=== PATIENT | male | born 1965 | race African-American/Black ===

== ENCOUNTER 2017-02-09 13:27 | Emergency (ER) | payer SELFPAY ==
[~2017-02-09] VITALS: Ht 175.3 cm; Wt 113.0 kg
[2017-02-09 13:29] VITALS: BP 122/82
[2017-02-09] MEDS ORDERED: ALPR0.25 PO (13:33)
[2017-02-09] MEDS ORDERED: ARIP2TAB3 PO (13:33)
[2017-02-09] MEDS ORDERED: LORAZEPAM 1MG TABLET PO ONE (17:15)
[2017-02-09] MEDS ORDERED: ARIPIPRAZOLE 15MG TABLET PO ONE (17:15)
[2017-02-09 18:09] LABS: BASOPHILS % 1.1 % (0.0-2.0); EOSINOPHILS % 2.6 % (0.0-5.0); HEMATOCRIT. 49.8 % (42.0-52.0); HEMOGLOBIN. 17.1 g/dL (14.0-18.0); LYMPHOCYTES % 34.4 % (20.0-50.0); MEAN CORPUSCULAR HEMOGLOBIN 27.7 pg (28.0-32.0); MEAN CORPUSCULAR VOLUME 80.5 fL (80.0-94.0); MEAN PLATELET VOLUME 10.2 fl (7.4-10.4); MONOCYTES % 6.4 % (2.0-8.0); NEUTROPHILS % 55.5 % (40.0-76.0); PLATELET 212 x1000/uL (130-400); RED BLOOD CELL COUNT 6.19 mill/uL (4.7-6.1); RED CELL DISTRIBUTION WIDTH 16.6 % (11.6-14.6)
[2017-02-09 18:12] LABS: CHLORIDE 104 mEq/L (98-107)
[2017-02-09 18:19] LABS: CARBON DIOXIDE 28 mEq/L (21-32); ETHANOL BLOOD < 10 mg/dL
== END 2017-02-09 18:45 | disposition left against medical advice (07) ==
LOC: ER 13:41
DX: R45.851 Suicidal ideations (principal); R44.0 Auditory hallucinations; F20.9 Schizophrenia, unspecified; F41.9 Anxiety disorder, unspecified; Z91.14 Patient's other noncompliance with medication regimen; Z76.0 Encounter for issue of repeat prescription; F17.210 Nicotine dependence, cigarettes, uncomplicated
CPT/HCPCS: 36415; 80048; 80307; 80329; 85025; 99284; G0482; Z7610

== ENCOUNTER 2017-08-28 21:35 | Emergency (ER) | payer MEDICARE ==
[~2017-08-28] VITALS: Ht 177.8 cm; Wt 81.0 kg
[~2017-08-28 21:35] MED LIST: ALPR0.25 PO; ARIP2TAB3 PO
[2017-08-28] MEDS ORDERED: CYCLOBENZAPRINE 10MG TABLET PO ONE (22:45)
[2017-08-29 02:00] VITALS: BP 144/91
== END 2017-08-29 02:50 | disposition home or self-care (01) ==
LOC: ER 21:35
DX: M54.5 Low back pain (principal); I10 Essential (primary) hypertension
CPT/HCPCS: 99283

== ENCOUNTER 2018-01-02 14:47 | Emergency (ER) | payer MEDICARE, MEDICAID ==
[~2018-01-02] VITALS: Ht 177.8 cm; Wt 79.0 kg
[~2018-01-02 14:47] MED LIST changes: +LISI-604 PO; +OMEP20TA15 PO
[2018-01-02 15:05] VITALS: BP 126/88
== END 2018-01-02 19:14 | disposition home or self-care (01) ==
LOC: ER 15:21
DX: T65.893A Toxic effect of other specified substances, assault, initial encounter (principal); H10.213 Acute toxic conjunctivitis, bilateral; Y35.29 Legal intervention involving other gas; Y92.511 Restaurant or cafe as the place of occurrence of the external cause; Z88.6 Allergy status to analgesic agent
CPT/HCPCS: 99283

== ENCOUNTER 2018-02-26 15:00 | Inpatient (IN) | payer MEDICARE, MEDICAID ==
[~2018-02-26] VITALS: Ht 180.3 cm; Wt 72.6 kg
[2018-02-26] MEDS ORDERED: ASPIRIN 81MG TABLET PO ONE (17:00)
[2018-02-26 17:37] LABS: BASOPHILS % 0.5 % (0.0-2.0); EOSINOPHILS % 2.2 % (0.0-5.0); HEMATOCRIT. 46.2 % (42.0-52.0); HEMOGLOBIN. 15.2 g/dL (14.0-18.0); LYMPHOCYTES % 19.6 % (20.0-50.0); MEAN CORPUSCULAR HEMOGLOBIN 27.7 pg (28.0-32.0); MEAN CORPUSCULAR VOLUME 84.1 fL (80.0-94.0); MEAN PLATELET VOLUME 9.9 fl (7.4-10.4); MONOCYTES % 6.5 % (2.0-8.0); NEUTROPHILS % 71.2 % (40.0-76.0); PLATELET 87 x1000/uL (130-400); RED CELL DISTRIBUTION WIDTH 16.5 % (11.6-14.6)
[2018-02-26 17:49] LABS: CHLORIDE 108 mEq/L (98-107)
[2018-02-26 17:51] LABS: PLATELET ESTIMATE DECREASED
[2018-02-26 17:52] LABS: ETHANOL BLOOD < 10 mg/dL
[2018-02-26] MEDS ORDERED: IPRATROPIUM/ALBUTEROL 0.5-3(2.5)MG/3ML NEB HHN ONE (18:30)
[2018-02-26] MEDS ORDERED: FUROSEMIDE 20MG/2ML VIAL IVP ONE (18:30)
[2018-02-26 23:43] LABS: CLARITY URINE CLEAR (CLEAR); COLOR URINE YELLOW (YELLOW); KETONES URINE NEGATIVE (NEGATIVE); LEUKOCYTE ESTERASE URINE NEGATIVE (NEGATIVE); NITRITE URINE NEGATIVE (NEGATIVE); OCCULT BLOOD URINE NEGATIVE (NEGATIVE); PROTEIN URINE NEGATIVE (NEGATIVE); SPECIFIC GRAVITY URINE 1.007 (1.005-1.030); UROBILINOGEN URINE 0.2 E.U./dL (0.2-1.0)
[2018-02-26 23:56] LABS: *AMPHETAMINES SCREEN URINE NEGATIVE (NEGATIVE); *BARBITURATES SCREEN URINE NEGATIVE (NEGATIVE); *BENZODIAZEPINES SCREEN URINE NEGATIVE (NEGATIVE); *COCAINE SCREEN URINE PRESUMTIVE POSITIVE (NEGATIVE); CANNABINOID URINE SCREEN NEGATIVE (NEGATIVE); METHADONE URINE SCREEN NEGATIVE (NEGATIVE); OPIATES URINE SCREEN NEGATIVE (NEGATIVE); PHENCYCLIDINE URINE SCREEN NEGATIVE (NEGATIVE)
[2018-02-27] VITALS (9 sets, daily range): BP systolic 117–134; BP diastolic 67–95
[2018-02-27] MEDS: IPRATROPIUM/ALBUTEROL 0.5-3(2.5)MG/3ML NEB HHN SCH ×2 (02:10→20:10)
[2018-02-27] MEDS ORDERED: IPRATROPIUM/ALBUTEROL 0.5-3(2.5)MG/3ML NEB HHN PRN (03:15)
[2018-02-27] MEDS ORDERED: HYDROCODONE/ACETAMINOPHEN 5/325MG TABLET PO PRN (03:15)
[2018-02-27] MEDS ORDERED: ONDANSETRON HCL 4MG/2ML INJ IV PRN (03:15)
[2018-02-27] MEDS ORDERED: PNEUMOCOCCAL 23-VAL P-SAC VAC 0.5 ML IM ONE (09:00)
[2018-02-27] MEDS ORDERED: INFLUENZA VIRUS VACCINE(AFLURIA) 0.5ML SYR IM ONE (09:00)
[2018-02-27] MEDS: FUROSEMIDE 40MG/4ML VIAL IVP SCH (09:18)
[2018-02-27] MEDS: AMLODIPINE 10MG TABLET PO SCH (09:19)
[2018-02-27 10:20] LABS: BASOPHILS % 0.4 % (0.0-2.0); EOSINOPHILS % 4.7 % (0.0-5.0); HEMATOCRIT. 43.6 % (42.0-52.0); HEMOGLOBIN. 14.8 g/dL (14.0-18.0); LYMPHOCYTES % 26.7 % (20.0-50.0); MEAN CORPUSCULAR HEMOGLOBIN 27.7 pg (28.0-32.0); MEAN CORPUSCULAR VOLUME 81.7 fL (80.0-94.0); MEAN PLATELET VOLUME 9.9 fl (7.4-10.4); MONOCYTES % 9.2 % (2.0-8.0); PLATELET 177 x1000/uL (130-400); RED BLOOD CELL COUNT 5.34 mill/uL (4.7-6.1)
[2018-02-27 10:40] LABS: CHLORIDE 108 mEq/L (98-107)
[2018-02-27 10:48] LABS: CREATINE KINASE 497 IU/L (39-308); CREATINE KINASE MB FRACTION 2.8 ng/mL (0.5-3.6); HDL CHOLESTEROL 61 mg/dL (40-59); LDL CHOLESTEROL 83 mg/dL (5-100)
[2018-02-28 03:55] VITALS: BP 107/70
[2018-02-28] MEDS: IPRATROPIUM/ALBUTEROL 0.5-3(2.5)MG/3ML NEB HHN SCH ×3 (07:57→21:03)
[2018-02-28 08:00] VITALS: BP 105/76
[2018-02-28] MEDS: FUROSEMIDE 40MG/4ML VIAL IVP SCH (08:37)
[2018-02-28] MEDS: AMLODIPINE 10MG TABLET PO SCH (08:38)
[2018-02-28 12:00] VITALS: BP 102/67
[2018-02-28 16:00] VITALS: BP 107/47
[2018-02-28 20:00] VITALS: BP 121/75
[2018-03-01] VITALS (7 sets, daily range): BP systolic 100–127; BP diastolic 51–72
[2018-03-01] MEDS: IPRATROPIUM/ALBUTEROL 0.5-3(2.5)MG/3ML NEB HHN SCH ×4 (02:11→20:00)
[2018-03-01] MEDS: FUROSEMIDE 40MG/4ML VIAL IVP SCH (09:00)
[2018-03-01] MEDS: AMLODIPINE 10MG TABLET PO SCH (09:00)
== END 2018-03-01 20:50 | DRG 192 ==
LOC: ER 15:00 → EDBEDREQ 18:32 → 6WST 21:23 → EDBEDREQ 21:39 → EDBEDREQTM 21:39 → ENRESERV 23:01
PROVIDERS: ADMIT Hospitalist; ATTEND Hospitalist
DX: J44.1 Chronic obstructive pulmonary disease with (acute) exacerbation (principal); I50.9 Heart failure, unspecified; I11.0 Hypertensive heart disease with heart failure; F17.210 Nicotine dependence, cigarettes, uncomplicated; R07.9 Chest pain, unspecified; I25.10 Atherosclerotic heart disease of native coronary artery without angina pectoris; Z59.0 Homelessness; Z82.49 Family history of ischemic heart disease and other diseases of the circulatory system; Z88.6 Allergy status to analgesic agent; Z88.8 Allergy status to other drugs, medicaments and biological substances; Z79.899 Other long term (current) drug therapy
CPT/HCPCS: 36415; 71045; 80048; 80061; 80305; 82550; 82553; 83880; 84484; 90686; 90732; 93005; 93306; 93970; 94640; 96374; 99285; G0482; J1940; J7620

== ENCOUNTER 2018-05-15 19:35 | Inpatient (IN) | payer MEDICARE, MEDICAID ==
[~2018-05-15] VITALS: Ht 188 cm; Wt 80.7 kg
[2018-05-15] MEDS ORDERED: SODIUM CHLORIDE 0.9% 1,000 ML IV ONE (20:05)
[2018-05-15] MEDS ORDERED: LORAZEPAM 2MG/ML CPJ IM ONE (20:15)
[2018-05-15] MEDS ORDERED: HALOPERIDOL LACTATE 5MG/ML VIAL IM ONE (20:15)
[2018-05-15] MEDS ORDERED: ACETAMINOPHEN 325MG TABLET PO ONE (20:15)
[2018-05-15 20:38] LABS: CHLORIDE 108 mEq/L (98-107)
[2018-05-15 20:39] LABS: BASOPHILS % 0.4 % (0.0-2.0); EOSINOPHILS % 1.7 % (0.0-5.0); HEMATOCRIT. 46.2 % (42.0-52.0); HEMOGLOBIN. 15.5 g/dL (14.0-18.0); LYMPHOCYTES % 16.9 % (20.0-50.0); MEAN CORPUSCULAR HEMOGLOBIN 27.7 pg (28.0-32.0); MEAN CORPUSCULAR VOLUME 82.8 fL (80.0-94.0); MEAN PLATELET VOLUME 9.6 fl (7.4-10.4); MONOCYTES % 9.1 % (2.0-8.0); NEUTROPHILS % 71.9 % (40.0-76.0); PLATELET 177 x1000/uL (130-400); RED BLOOD CELL COUNT 5.58 mill/uL (4.7-6.1); RED CELL DISTRIBUTION WIDTH 16.3 % (11.6-14.6)
[2018-05-15 20:42] LABS: ETHANOL BLOOD < 10 mg/dL; INR 1.1; PROTHROMBIN TIME 10.7 sec (9.1-11.1)
[2018-05-15] MEDS ORDERED: ASPIRIN 81MG TABLET PO ONE (22:00)
[2018-05-15] MEDS ORDERED: NITROGLYCERIN 0.4MG TABLET SL SL PRN (22:00)
[2018-05-15] MEDS ORDERED: FUROSEMIDE 40MG/4ML VIAL IV ONE (22:00)
[2018-05-15] MEDS ORDERED: ENOXAPARIN 80MG/0.8ML SYR SUBCUT ONE (22:15)
[2018-05-15] MEDS ORDERED: IOHEXOL-350 100 ML BOTTLE ONE (22:40)
[2018-05-16 00:17] LABS: *AMPHETAMINES SCREEN URINE NEGATIVE (NEGATIVE); *BENZODIAZEPINES SCREEN URINE NEGATIVE (NEGATIVE); *COCAINE SCREEN URINE PRESUMTIVE POSITIVE (NEGATIVE)
[2018-05-16 00:18] LABS: *BARBITURATES SCREEN URINE NEGATIVE (NEGATIVE); CANNABINOID URINE SCREEN NEGATIVE (NEGATIVE)
[2018-05-16 00:20] LABS: METHADONE URINE SCREEN NEGATIVE (NEGATIVE)
[2018-05-16 00:21] LABS: OPIATES URINE SCREEN NEGATIVE (NEGATIVE); PHENCYCLIDINE URINE SCREEN NEGATIVE (NEGATIVE)
[2018-05-16] MEDS ORDERED: CLONIDINE 0.1MG TABLET PO PRN (00:45)
[2018-05-16] MEDS ORDERED: DIPHENHYDRAMINE 50MG/ML VIAL IV PRN (00:45)
[2018-05-16] MEDS ORDERED: NA PHOS,M-B/NA PHOS,DI-BA ENEMA 118ML PR PRN (00:45)
[2018-05-16] MEDS ORDERED: IPRATROPIUM/ALBUTEROL 0.5-3(2.5)MG/3ML NEB INH PRN (00:45)
[2018-05-16] MEDS ORDERED: ONDANSETRON HCL 4MG/2ML INJ IV PRN (00:45)
[2018-05-16] MEDS ORDERED: HYDROCODONE/ACETAMINOPHEN 5/325MG TABLET PO PRN (00:45)
[2018-05-16] MEDS ORDERED: MAGNESIUM/ALUMINUM HYDROXIDE/SIMETHICONE 30ML UDC PO PRN (00:45)
[2018-05-16] MEDS ORDERED: ACETAMINOPHEN 325MG TABLET PO PRN (00:45)
[2018-05-16] MEDS ORDERED: DOCUSATE SODIUM 100MG CAPSULE PO PRN (00:45)
[2018-05-16] MEDS ORDERED: ACETAMINOPHEN 650MG/20.3ML UDC GT PRN (00:45)
[2018-05-16] MEDS ORDERED: ACETAMINOPHEN 650MG SUPP PR PRN (00:45)
[2018-05-16] MEDS ORDERED: GUAIFENESIN 200MG/10ML SUGAR FREE UDC PO PRN (00:45)
[2018-05-16 02:00] VITALS: BP 114/73
[2018-05-16] MEDS: SODIUM CHLORIDE 0.9% INJ 3ML FLUSH IVF SCH ×2 (04:26→21:27)
[2018-05-16 06:24] VITALS: BP 116/73
[2018-05-16 07:36] LABS: CLARITY URINE CLEAR (CLEAR); KETONES URINE NEGATIVE (NEGATIVE); LEUKOCYTE ESTERASE URINE NEGATIVE (NEGATIVE); NITRITE URINE NEGATIVE (NEGATIVE); OCCULT BLOOD URINE NEGATIVE (NEGATIVE); PROTEIN URINE NEGATIVE (NEGATIVE); SPECIFIC GRAVITY URINE 1.011 (1.005-1.030); UROBILINOGEN URINE 0.2 E.U./dL (0.2-1.0)
[2018-05-16 07:38] LABS: COLOR URINE PALE YELLOW (YELLOW)
[2018-05-16 08:00] VITALS: BP 109/70
[2018-05-16 09:11] LABS: *AMPHETAMINES SCREEN URINE NEGATIVE (NEGATIVE); *BARBITURATES SCREEN URINE NEGATIVE (NEGATIVE); *BENZODIAZEPINES SCREEN URINE NEGATIVE (NEGATIVE); *COCAINE SCREEN URINE PRESUMTIVE POSITIVE (NEGATIVE); METHADONE URINE SCREEN NEGATIVE (NEGATIVE)
[2018-05-16 09:12] LABS: CANNABINOID URINE SCREEN NEGATIVE (NEGATIVE); OPIATES URINE SCREEN NEGATIVE (NEGATIVE); PHENCYCLIDINE URINE SCREEN NEGATIVE (NEGATIVE)
[2018-05-16] MEDS: FUROSEMIDE 40MG/4ML VIAL IV SCH (09:22)
[2018-05-16 11:22] LABS: CREATINE KINASE MB FRACTION 2.8 ng/mL (0.5-3.6)
[2018-05-16] MEDS: ASPIRIN 81MG EC TABLET PO SCH (11:51)
[2018-05-16 12:00] VITALS: BP 118/98
[2018-05-16 16:00] VITALS: BP 110/77
[2018-05-16 20:00] VITALS: BP 112/70
[2018-05-16] MEDS ORDERED: ATORVASTATIN CALCIUM 10MG TABLET PO SCH (21:00)
[2018-05-16] MEDS: RIVAROXABAN 15 MG TABLET PO SCH (21:27)
[2018-05-17] VITALS: BP 118/74
[2018-05-17 04:00] VITALS: BP 122/76
[2018-05-17] MEDS: SODIUM CHLORIDE 0.9% INJ 3ML FLUSH IVF SCH (05:12)
[2018-05-17 07:21] LABS: BASOPHILS % 0.7 % (0.0-2.0); HEMATOCRIT. 42.3 % (42.0-52.0); HEMOGLOBIN. 14.2 g/dL (14.0-18.0); LYMPHOCYTES % 33.5 % (20.0-50.0); MEAN CORPUSCULAR HEMOGLOBIN 27.6 pg (28.0-32.0); MEAN CORPUSCULAR VOLUME 82.5 fL (80.0-94.0); MEAN PLATELET VOLUME 9.5 fl (7.4-10.4); MONOCYTES % 11.7 % (2.0-8.0); NEUTROPHILS % 50.1 % (40.0-76.0); PLATELET 207 x1000/uL (130-400); RED BLOOD CELL COUNT 5.13 mill/uL (4.7-6.1); RED CELL DISTRIBUTION WIDTH 16.3 % (11.6-14.6)
[2018-05-17 08:10] VITALS: BP 113/73
[2018-05-17 08:11] LABS: CHLORIDE 110 mEq/L (98-107)
[2018-05-17 08:24] LABS: LDL CHOLESTEROL 93 mg/dL (5-100)
[2018-05-17 08:25] LABS: HDL CHOLESTEROL 43 mg/dL (40-59)
[2018-05-17] MEDS: RIVAROXABAN 15 MG TABLET PO SCH (08:47)
[2018-05-17] MEDS: ASPIRIN 81MG EC TABLET PO SCH (08:47)
[2018-05-17] MEDS: FUROSEMIDE 40MG/4ML VIAL IV SCH (08:47)
[2018-05-17] MEDS ORDERED: ASPI-1158 PO (11:28)
[2018-05-17] MEDS ORDERED: RIVA20TA PO (11:28)
[2018-05-17] MEDS ORDERED: XAR15 PO (11:28)
[2018-05-17] MEDS ORDERED: ATOR10TA PO (11:28)
[2018-05-17 12:00] VITALS: BP 114/79
[2018-05-17 12:41] VITALS: BP 114/79
[2018-05-17 16:00] VITALS: BP 117/69
[2018-06-07] MEDS ORDERED: RIVAROXABAN 20 MG TABLET PO SCH (09:00)
== END 2018-05-17 16:23 | disposition home or self-care (01) | DRG 301 ==
LOC: ER 19:35 → 7WST 05-16 00:38 → EDBEDREQ 05-16 00:45 → EDBEDREQDT 05-16 00:45 → EDBEDREQTM 05-16 00:45 → ENRESERV 05-16 01:17 → CANRESERV 05-16 01:17 → ENRESERV 05-16 01:28
PROVIDERS: ADMIT Family Medicine; ATTEND Family Medicine
DX: I82.412 Acute embolism and thrombosis of left femoral vein (principal); I11.0 Hypertensive heart disease with heart failure; R07.9 Chest pain, unspecified; I25.10 Atherosclerotic heart disease of native coronary artery without angina pectoris; F99 Mental disorder, not otherwise specified; I50.9 Heart failure, unspecified; J44.9 Chronic obstructive pulmonary disease, unspecified; F17.200 Nicotine dependence, unspecified, uncomplicated; Z88.9 Allergy status to unspecified drugs, medicaments and biological substances; Y92.9 Unspecified place or not applicable; F14.129 Cocaine abuse with intoxication, unspecified
CPT/HCPCS: 36415; 71045; 71275; 73130; 73590; 73610; 80061; 80305; 82550; 82553; 83880; 84484; 93005; 93970; 96361; 96372; 96374; 97162; 99291; G0482; J1630; J1650; J1940; J2060; J7030; Q9967

== ENCOUNTER 2018-06-12 14:36 | Emergency (ER) | payer MEDICARE, MEDICAID ==
[~2018-06-12] VITALS: Ht 175.3 cm; Wt 83.0 kg
[~2018-06-12 14:36] MED LIST changes: +ASPI-1158 PO; +ATOR10TA PO; +RIVA20TA PO; +XAR15 PO
[2018-06-12 14:41] VITALS: BP 143/85
[2018-06-12] MEDS ORDERED: ACETAMINOPHEN WITH CODEINE 300/30MG TABLET PO ONE (21:30)
== END 2018-06-12 23:25 | disposition home or self-care (01) ==
LOC: ER 14:46
DX: M25.552 Pain in left hip (principal); J44.9 Chronic obstructive pulmonary disease, unspecified; I11.9 Hypertensive heart disease without heart failure; I51.9 Heart disease, unspecified; Z88.6 Allergy status to analgesic agent; Z79.899 Other long term (current) drug therapy; W18.39XA Other fall on same level, initial encounter; Y93.89 Activity, other specified; Y92.89 Other specified places as the place of occurrence of the external cause; Y99.8 Other external cause status
CPT/HCPCS: 73502; 99283